=== PATIENT | female | born 1975 | race American Indian/Alaskan Native ===

== ENCOUNTER 2019-04-28 10:49 | Observation (INO) | payer MEDICAID, OTHER ==
--- NOTE | 2019-04-26 10:55 | Anesthesia Consultation ---
Anesthesia Consult and Med Hx Date of service: 04/26/19 - Airway Anesthetic Teeth Evaluation: Good ROM Head & Neck: Adequate Mental/Hyoid Distance: Adequate Mallampati Class: Class III Intubation Access Assessment: Possibly Difficult - Pulmonary Exam CTA: Yes - Cardiac Exam Cardiac Exam: RRR - Pre-Operative Health Status ASA Pre-Surgery Classification: ASA3 Proposed Anesthetic Plan: General - Pre-Anesthesia Comment Pre-Anesthesia Comments: TAP block discussed with patient including technical difficulties due to obesity. - Cardiovascular System Hx Hypertension: Yes Hx Peripheral Vascular Disease: Yes (Valve in right leg causes blood to flow wrong way) - Central Nervous System Hx Psychiatric Problems: No - Gastrointestinal Hx Gastroesophageal Reflux Disease: Yes - Endocrine Hx Insulin Dependent Diabetes: Yes - Hematic Hx Anemia: Yes - Other Systems Hx Cancer: No Hx Obesity: Yes (morbid)
[2019-04-26 11:21] LABS: Basophils % (Auto) 0.4 % (0.0-1.8); Eosinophils # (Auto) 0.1 K/mm3 (0.0-0.4); Eosinophils % (Auto) 2.9 % (0.0-4.3); Hematocrit 32.9 % (30.3-42.9); Hemoglobin 10.5 gm/dl (10.1-14.3); Lymphocytes # (Auto) 2.1 K/mm3 (1.2-5.4); Lymphocytes % (Auto) 45.4 % (13.4-35.0); Mean Corpuscular HGB Conc 32 % (30-34); Mean Corpuscular Volume 79 fl (79-97); Monocytes # (Auto) 0.2 K/mm3 (0.0-0.8); Monocytes % (Auto) 4.8 % (0.0-7.3); Platelet Count 210 K/mm3 (140-440); Red Blood Count 4.15 M/mm3 (3.65-5.03); Red Cell Distribution Width 16.3 % (13.2-15.2)
[2019-04-26 11:35] LABS: BUN/Creatinine Ratio 14; Blood Urea Nitrogen 14 mg/dL (7-17); Calcium 9.2 mg/dL (8.4-10.2); Hemolysis Index 6
--- NOTE | 2019-04-28 10:05 | History and Physical Report ---
History of Present Illness Date of examination: 04/28/19 Date of admission: 04/28/2019 Chief complaint: symptomatic fibroid History of present illness: 43y/o with symptomatic uterine fibroids. The patient complains of pain and bleeding with her menses. She underwent a uterine fibroid embolization without significant improvement in her symptoms. Ultrasound demonstates an enlarged uterus with a leiomyoma measuring 6.5cm. Past History Past Medical History: hypertension, diabetes, high cholesterol, other (morbid obesity; vision impaired) Past Surgical History: section, other (foot surgery; UFE) Social history: no significant social history - Obstetrical History : 4 Para: 4 Hx # Term Pregnancies: 4 Number of Pregnancies: 0 Spontaneous Abortions: 0 Induced : 0 Number of Living Children: 4 Medications and Allergies Allergies Allergy/AdvReac Type Severity Reaction Status Date / Time sulfamethoxazole Allergy Lips swell Verified 04/26/19 16:12 [From Bactrim] tramadol Allergy Nausea Verified 04/26/19 16:12 trimethoprim [From Bactrim] Allergy Lips swell Verified 04/26/19 16:12 Home Medications Medication Instructions Recorded Confirmed Last Taken Type Ferrous Sulfate [Iron 325 MG] 325 mg PO DAILY 04/26/19 04/26/19 Unknown History Insulin Glargine,Hum.rec.anlog 60 unit SQ QAM 04/26/19 04/26/19 Unknown History [Lantus Solostar] Lispro Insulin [HumaLOG] 7 unit SQ TIDWM 04/26/19 04/26/19 Unknown History Losartan [Cozaar] 100 mg PO QDAY 04/26/19 04/26/19 Unknown History NIFEdipine XL [Procardia Xl] 60 mg PO BID 04/26/19 04/26/19 Unknown History Pravastatin [Pravachol] 80 mg PO QHS 04/26/19 04/26/19 Unknown History carvediloL [Coreg] 12.5 mg PO DAILY 04/26/19 04/26/19 Unknown History hydroCHLOROthiazide [HCTZ] 12.5 mg PO DAILY 04/26/19 04/26/19 Unknown History Active Meds: Active Medications Sodium Chloride (Nacl 0.9% 1000 Ml) 1,000 mls @ 125 mls/hr IV DIRECT GLORIA Cefazolin Sodium 3 gm/ Sodium (Chloride) 100 mls @ 100 mls/30 min IV PREOP NR; Protocol Review of Systems All systems: negative Genitourinary: vaginal bleeding, pelvic pain - Vital Signs Vital signs: Vital Signs Temp Pulse Resp BP Pulse Ox 97.6 F 84 20 183/97 97 04/26/19 10:20 04/26/19 10:20 04/26/19 10:20 04/26/19 10:20 04/26/19 10:20 Temp Pulse Resp BP Pulse Ox 97.6 F 84 20 183/97 97 04/26/19 10:20 04/26/19 10:20 04/26/19 10:20 04/26/19 10:20 04/26/19 10:20 - Physical Exam Breasts: Positive: deferred Cardiovascular: Regular rate Lungs: Positive: Clear to auscultation Results Result Diagrams: 04/26/19 10:30 04/26/19 10:30 All other labs normal. Assessment and Plan - Patient Problems (1) Leiomyoma Current Visit: Yes Status: Acute Plan to address problem: scheduled for a robotic hysterectomy (2) Dysmenorrhea Current Visit: Yes Status: Acute (3) Morbid obesity Current Visit: Yes Status: Acute
[~2019-04-28 10:49] MED LIST: CELECOXIB 200 MG CAP PO NR; GABAPENTIN 300 MG CAP PO NR; MIDAZOLAM 2 MG/2 ML INJ IV NR; SODIUM CHLORIDE 0.9% 1000 ML 1,000 ML IV SCH
[2019-04-28] MEDS ORDERED: MIDAZOLAM 2 MG/2 ML INJ IV NR (12:44)
[2019-04-28] MEDS ORDERED: FAMOTIDINE 20 MG/2 ML INJ IV NR (12:45)
[2019-04-28] MEDS ORDERED: fentaNYL 100 MCG/2 ML INJ ONE (12:54)
[2019-04-28] MEDS ORDERED: GLYCOPYRROLATE 0.4 MG/2 ML INJ ONE (12:54)
[2019-04-28] MEDS ORDERED: ONDANSETRON 4 MG/2 ML INJ ONE (12:54)
[2019-04-28] MEDS ORDERED: dexAMETHasone 20 MG/5 ML VIAL ONE (12:54)
[2019-04-28] MEDS ORDERED: ROCURONIUM 50 MG/5 ML INJ IV ONE (12:54)
[2019-04-28] MEDS ORDERED: LIDOCAINE MPF (2%) 20 MG/1 ML VIAL 5 ML ONE (12:54)
[2019-04-28] MEDS ORDERED: NEOSTIGMINE 10MG/10 ML INJ MDV ONE (12:54)
[2019-04-28] MEDS ORDERED: KETAMINE/STERILE WATER 50 MG/ML SYRINGE ONE (12:55)
[2019-04-28] MEDS ORDERED: propofoL 200 MG/20 ML VIAL IV ONE (12:55)
[2019-04-28] MEDS ORDERED: NEOMY 40 MG/POLYMYXIN B 200,000 UNITS/ML (GU) AMPULE IR ONE (13:11)
[2019-04-28] MEDS ORDERED: BUPIVACAINE/PF (0.5%) 5 MG/1 ML 30 ML VIAL INFILTRATI ONE ×2 (14:35→14:58)
[2019-04-28] MEDS ORDERED: SODIUM CHLORIDE 0.9% IRR 1,500 ML BOTTLE IR ONE (14:58)
[2019-04-28] MEDS ORDERED: SODIUM CHLORIDE 0.9% IRRIG SOLN 2000 ML IR ONE (14:58)
[2019-04-28] MEDS ORDERED: ZOLPIDEM 5 MG TAB PO PRN (15:22)
[2019-04-28] MEDS ORDERED: ONDANSETRON 4 MG/2 ML INJ IV PRN ×2 (15:22→15:51)
[2019-04-28] MEDS ORDERED: ACETAMINOPHEN 325 MG TAB PO PRN (15:22)
--- NOTE | 2019-04-28 15:22 | Operative Report ---
Operative Report Operative Report: Date of surgery: 04/28/2019 Preoperative diagnoses: Symptomatic uterine fibroids; menorrhagia; dysmenorrhea Postoperative diagnoses: Same as above; right ovarian cyst Procedure: Robotic hysterectomy and bilateral salpingectomy; right oophorectomy; lysis of adhesions Surgeon: Brissa Corbett M.D. Developer Architect: Carolyn Moss Anesthesia: Gen. endotracheal anesthesia Estimated blood loss: 100 mL Pathology: Cervix, uterus, leiomyomas, bilateral tubes, right ovary Indication: 43-year-old with a history of symptomatic uterine fibroids. Patient has a history of surgical removal of her left ovary. She is elected to undergo definitive surgical management. Procedure: The patient was taken to the operating room and given general endotracheal anesthesia without complication. She is prepped and draped in a normal sterile fashion. A bivalve speculum was placed in the patient's vagina and a single- tooth tenaculum placed on the anterior lip of the cervix. The uterus was sounded with the uterine sound. A [employer] uterine manipulator was placed in the bivalve speculum was then removed. Attention was then turned to the patient's abdomen where a 12 millimeter supra umbilical skin incision was then made. A Veress needle was placed and peritoneal entry was verified water-filled syringe. Insufflation of the peritoneal cavity was performed with CO2 gas. The 12 mm trocar was then placed under direct visualization. An additional 8 mm trocar was placed on the patient's left and right lateral side just opposite of the supraumbilical trocar. An additional 5 mm right lateral trocar was then placed as the accessory port. The Bg Barrow device was used to close the fascia of the 12 mm incision. The patient was then placed in steep Trendelenburg. The da Treva robot was then engaged. A fenestrated forcep was placed in arm 2 and a vessel sealer was placed in arm 1. The surgeon then transferred to the surgical console. Gen. survey revealed evidence of multiple omental adhesions to the anterior abdominal wall. The monopolar scissors had to be used in order to excise the adhesions. The uterus was noted to be significantly enlarged with evidence of multiple leiomyomas. Ovary was surgically absent. The right ovary demonstrated enlargement with findings of a dermoid cyst. The infundibulopelvic ligament was then isolated on the right. The vessel sealer was used to coagulate the ligament which was then transected. The tube and ovary were transected from the supply. The round ligament was then coagulated and transected also. The vesicouterine peritoneum was then entered from the patient's right side. The uterine vessels were then coagulated with the vessel sealer. The vessels were then transected . Attention was then turned to the patient's left side where the infundibulopelvic ligament and mesosalpinx were again isolated coagulated and transected. The vesical peritoneum was then entered from the left and joined in the midline. Peritoneum was reflected off of the lower uterine segment. Uterine vessels were then coagulated and then t ransected. The blood supply to the uterus was adequately contained, a posterior colpotomy was made. The V care ring was visualized. Posterior colpotomy was created with the monopolar scissors. The incision was continued circumferentially until anterior colpotomy was made. The cervix and uterus were amputated from the vaginal cuff. A myomectomy was performed in order to decompress the uterus with removal of a degenerating leiomyoma. The uterus was then removed along with the tubes bilaterally, leiomyomas , and right ovary through the vagina and a warm laparotomy sponge was placed and maintain the pneumoperitoneum. The vaginal cuff was then closed in a running fashion with V lock suture. Irrigation of the pelvis was performed. Hemoblast was applied to the incision. The skin was then reapproximated with 4-0 Monocryl. The tissue was sent to pathology which included the cervix, uterus, leiomyomas, tubes and right ovary. The patient was then successfully extubated. She was then taken to the recovery room in stable condition. All sponge laps and needle counts were correct x2.
[2019-04-28] MEDS: HYDROmorphone 1 MG/1 ML INJ IV PRN ×2 (15:50→16:00)
[2019-04-28] MEDS ORDERED: HYDROmorphone 1 MG/1 ML INJ ONE (15:50)
[2019-04-28] MEDS ORDERED: D5W/LACTATED RINGERS 1,000 ML IV SCH (16:00)
[2019-04-28] MEDS: KETOROLAC 30 MG/1 ML INJ IV SCH ×2 (16:09→22:07)
[2019-04-28] MEDS ORDERED: KETOROLAC 30 MG/1 ML INJ ONE (16:10)
--- NOTE | 2019-04-28 17:21 | Post Anesthesia Evaluation ---
- Post Anesthesia Evaluation Patient Participated: Yes Airway Patent: Yes Stable Respiratory Function: Yes Nausea/Vomiting: No Temp > 96.8F: Yes Pain Manageable: Yes Adequeate Hydration: Yes Anesthesia Complications: No Block Receding Appropriately: Not Applicable Patient on Ventilator: No
[2019-04-28] MEDS ORDERED: hydrALAZINE 20 MG/1 ML INJ IV PRN (17:50)
[2019-04-28] MEDS: MORPHINE 4 MG/1 ML INJ IV PRN (18:36)
[2019-04-28] MEDS: IBUPROFEN 600 MG TAB PO SCH ×2 (19:40→23:12)
[2019-04-28] MEDS ORDERED: hydrALAZINE 20 MG/1 ML INJ IV ONE (20:00)
[2019-04-28] MEDS: NIFEdipine XL 60 MG TAB PO SCH (22:08)
[2019-04-28] MEDS: HEPARIN 5,000 UNIT/1 ML VIAL SUB-Q SCH (22:08)
[2019-04-29] MEDS: MORPHINE 4 MG/1 ML INJ IV PRN (00:59)
[2019-04-29 04:16] LABS: Hematocrit 32.3 % (30.3-42.9); Hemoglobin 10.4 gm/dl (10.1-14.3)
[2019-04-29] MEDS: KETOROLAC 30 MG/1 ML INJ IV SCH (04:29)
[2019-04-29] MEDS: oxyCODONE /ACETAMINOPHEN 5-325MG TAB PO PRN ×2 (07:09→11:40)
[2019-04-29] MEDS: IBUPROFEN 600 MG TAB PO SCH ×2 (07:14→12:00)
--- NOTE | 2019-04-29 08:29 | Progress Note ---
Assessment and Plan - Patient Problems (1) Leiomyoma Current Visit: Yes Status: Acute Plan to address problem: patient doing well routine postop advance diet as tolerated (2) Dysmenorrhea Current Visit: Yes Status: Acute (3) Morbid obesity Current Visit: Yes Status: Acute Subjective - Subjective Date of service: 04/29/19 Interval history: Patient reports having some nausea but denies vomiting. Pain well controlled Patient reports: pain well controlled, nauseated Objective - Vital Signs Latest vital signs: Vital Signs Temp Pulse Resp BP BP Pulse Ox 04/29/19 07:14 18 04/29/19 07:09 18 04/29/19 05:01 99.0 F 92 H 20 139/80 94 04/29/19 04:29 18 04/29/19 00:59 18 04/29/19 00:10 98.6 F 103 H 20 145/86 98 04/28/19 23:12 18 04/28/19 22:07 18 04/28/19 20:56 94 H 172/97 04/28/19 19:40 98.3 F 91 H 20 179/93 100 04/28/19 17:50 98.3 F 97 H 16 160/87 95 04/28/19 17:10 98.7 F 84 16 160/87 95 04/28/19 16:40 97.9 F 83 14 155/89 100 04/28/19 16:39 14 04/28/19 16:30 15 04/28/19 16:25 75 16 154/83 100 04/28/19 16:20 15 04/28/19 16:10 79 16 167/90 100 04/28/19 16:09 16 04/28/19 16:00 20 04/28/19 15:55 84 19 157/82 100 04/28/19 15:50 87 20 164/95 100 04/28/19 15:45 89 18 190/98 100 04/28/19 15:41 97.1 F L 92 H 14 169/95 100 04/28/19 11:45 98.8 F 83 16 145/38 98 Intake and Output 04/28/19 04/29/19 04/29/19 22:59 06:59 14:59 Intake Total 100 240 Output Total 650 2350 Balance -550 -2110 Intake: IV 100 Oral 240 Output: Urine 650 2350 Indwelling Catheter 2350 Other: Total, Intake Amount 240 Total, Output Amount 450 Weight 149.232 kg - Exam Breasts: Present: deferred Cardiovascular: Present: Regular rate - Labs Labs: Abnormal lab results 04/28/19 04/28/19 04/28/19 Range/Units 12:21 16:07 23:36 POC Glucose 108 H 131 H 197 H (70-105)
--- NOTE | 2019-04-29 08:30 | Discharge Summary ---
Providers - Providers Date of Admission: 04/28/19 15:22 Date of discharge: 04/29/19 Attending physician: GAVIOTA COTE Primary care physician: ALEXANDREA ESPITIA Hospitalization Reason for admission: other (fibroids) Procedure: other (robotic hysterectomy and RSO) Incision: normal Discharge diagnosis: other (fibroids) Hospital course: Patient was admitted the day of surgery and underwent a robotic hysterectomy. See op note. Postop uneventful Condition at discharge: Good Disposition: [id number] TO HOME OR SELFCARE - Discharge Diagnoses (1) Leiomyoma Status: Acute (2) Dysmenorrhea Status: Acute (3) Morbid obesity Status: Acute Plan - Discharge Medications Prescriptions: Ibuprofen [Motrin] 800 mg PO Q8HR PRN #60 tablet PRN Reason: Pain, Mild (1-3) oxyCODONE /ACETAMINOPHEN [Percocet 5/325] 1 tab PO Q6HR PRN #30 tablet PRN Reason: Pain Ondansetron HCl [Zofran] 4 mg PO Q8HR PRN #20 tablet PRN Reason: Nausea - Provider Discharge Summary Activity: no sex for 6 weeks, no heavy lifting 4 weeks, no strenuous exercise Diet: routine Instructions: routine Additional instructions: [] Smoking cessation referral if applicable(refer to patient education folder for contact #) [] Refer to [facility]'s [facility] Booklet Call your doctor immediately for: * Fever > 100.5 * Heavy vaginal bleeding ( >1 pad per hour) * Severe persistent headache * Shortness of breath * Reddened, hot, painful area to leg or breast * Drainage or odor from incision. * Keep incision clean and dry at all times and follow doctor's instructions regarding bathing/showering schedule followup in 4 weeks - Follow up plan
[2019-04-29] MEDS: NIFEdipine XL 60 MG TAB PO SCH (09:20)
[2019-04-29] MEDS: HEPARIN 5,000 UNIT/1 ML VIAL SUB-Q SCH (09:23)
[2019-04-29] MEDS ORDERED: INSULIN GLARGINE 100 UNITS/ML SUB-Q ONE (10:00)
[2019-04-29] MEDS ORDERED: LOSARTAN 50 MG TAB PO SCH (10:00)
[2019-04-29] MEDS ORDERED: SODIUM CHLORIDE 0.9% 1000 ML 1,000 ML ONE (17:18)
[2019-04-29] MEDS ORDERED: SODIUM CHLORIDE 0.9% 1000 ML 1,000 ML IV ONE (17:25)
[2019-04-29 19:09] VITALS: BP 130/75
[2019-04-30] MEDS ORDERED: INSULIN GLARGINE 100 UNITS/ML SUB-Q SCH (08:00)
== END 2019-04-29 21:30 | disposition home or self-care (01) ==
LOC: OR 10:49 → OB 15:22
PROVIDERS: ADMIT Obstetrics & Gynecology; ATTEND Obstetrics & Gynecology
DX: D25.9 Leiomyoma of uterus, unspecified (principal); N94.6 Dysmenorrhea, unspecified; E66.01 Morbid (severe) obesity due to excess calories; I10 Essential (primary) hypertension; E11.9 Type 2 diabetes mellitus without complications; N92.0 Excessive and frequent menstruation with regular cycle
CPT/HCPCS: 36415; 58573; 80048; 82962; 84703; 85014; 85018; 85025; 86850; 86900; 86901; 88307; 96372; 96374; 96375; 96376; A4217; G0378; J0360; J0690; J1100; J1170; J1644; J1885; J2250; J2270; J2405; J2704; J2710; J3010; J7030; J7121; S2900; J1815